=== PATIENT | male | born 1960 | race Asian ===

== ENCOUNTER 2017-08-29 11:11 | Emergency (ER) | payer OTHER ==
[~2017-08-29] VITALS: Ht 177.8 cm; Wt 105.5 kg
[~2017-08-29 11:11] MED LIST: ASPI81TA3 PO; ATOR20TA65 PO; INSU100I13 SC; METF500T PO
[2017-08-29 11:21] VITALS: Ht 177.8 cm; Wt 105.5 kg
[2017-08-29 12:42] LABS: BASOPHILS % 0.6 % (0.0-2.0); EOSINOPHILS # 0.1 10^3/ul (0.0-0.5); EOSINOPHILS % 2.1 % (0.0-7.0); HEMATOCRIT 44.3 % (42.0-52.0); LYMPHOCYTES # 1.4 10^3/ul (0.8-2.9); LYMPHOCYTES % 22.3 % (15.0-51.0); MEAN CORPUSCULAR HEMOGLOBIN 29.9 pg (29.0-33.0); MEAN CORPUSCULAR HGB CONC 33.9 g/dl (32.0-37.0); MEAN CORPUSCULAR VOLUME 88.2 fl (82.0-101.0); MEAN PLATELET VOLUME 9.7 fl (7.4-10.4); MONOCYTE # 0.5 10^3/ul (0.3-0.9); MONOCYTES % 7.7 % (0.0-11.0); NEUTROPHIL # 4.2 10^3/ul (1.6-7.5); PLATELET COUNT 239 10^3/UL (140-415); RED BLOOD COUNT 5.02 10^6/ul (4.70-6.10); RED CELL DISTRIBUTION WIDTH 11.9 % (11.5-14.5); WHITE BLOOD COUNT 6.2 10^3/ul (4.8-10.8)
[2017-08-29 12:48] LABS: BARBITURATES Negative (NEGATIVE); BENZODIAZEPINES Negative (NEGATIVE); CANNABINOIDS Negative (NEGATIVE); COCAINE Negative (NEGATIVE); OPIATES Negative (NEGATIVE)
[2017-08-29 13:01] LABS: ALANINE AMINOTRANSFERASE 34 IU/L (13-69); ALBUMIN/GLOBULIN RATIO 1.33; ALKALINE PHOSPHATASE 73 IU/L (42-121); ANION GAP 18 (8-16); ASPARTATE AMINO TRANSFERASE 26 IU/L (15-46); BILIRUBIN,INDIRECT 0.2 mg/dl (0-1.1); BILIRUBIN,TOTAL 0.2 mg/dl (0.2-1.3); BLOOD UREA NITROGEN 18 mg/dl (7-20); CALCIUM 8.8 mg/dl (8.4-10.2); CARBON DIOXIDE 24 mmol/L (21-31); CHLORIDE 96 mmol/L (97-110); CREATININE 1.04 mg/dl (0.61-1.24); POTASSIUM 4.6 mmol/L (3.5-5.1); SODIUM 133 mmol/L (135-144)
[2017-08-29 13:16] LABS: ETHANOL < 10.0 mg/dl
[2017-08-29 13:17] LABS: GLUCOSE 611 mg/dl (70-220)
[2017-08-29] MEDS ORDERED: SOD CHLORIDE 0.9% 1,000 ML IV STA (13:20)
[2017-08-29] MEDS ORDERED: INSULIN LISPRO 100 UNIT/ML VIAL SC STA (13:20)
[2017-08-29] MEDS ORDERED: LACTATED RINGER'S 1,000 ML IV STA (13:20)
[2017-08-29 13:47] LABS: MODE ROOM AIR; MetHgb Venous 0.2 %; Sample Type Blood venous; Venous COHb 0.3 %; Venous Total Hemglobin 15.6 g/dl
--- NOTE | 2017-08-29 14:04 | ERD ---
ER Documentation Chief Complaint Chief Complaint DEPRESSION W/ THOUGHTS OF HURTING HIMSELF. NO PLAN. HX OF SI HPI This is a 57-year-old male history of diabetes who states that he has not taken his insulin for over 2 years. The patient also has a history of psychiatric illness and has having depression with thoughts of hurting himself. He has no active plan. He denies homicidal ideation. He denies any nausea vomiting or diarrhea, no chest pain or shortness of breath or abdominal pain. ROS All systems reviewed and are negative except as per history of present illness. Medications Home Meds Active Scripts Metformin Hcl (Glucophage) 500 Mg Tablet, 1000 MG PO BID WITH MEALS for 1 Day, TAB Prov:CARLOS ZIMMERMAN MD 03/25/16 Insuln Asp Prt/Insulin Aspart* (Novolog Mix 70-30 Flexpen*) 100 Units/Ml Pen, 24 UNIT SC AC BREAKFAST DINNER for 1 Day Prov:CARLOS ZIMMERMAN MD 03/25/16 Atorvastatin Calcium (Atorvastatin Calcium) 20 Mg Tablet, 20 MG PO HS for 1 Day , TAB Prov:CARLOS ZIMMERMAN MD 03/25/16 Aspirin (Aspirin) 81 Mg Chew, 81 MG PO DAILY for 1 Day, TAB Prov:CARLOS ZIMMERMAN MD 03/25/16 Allergies Allergies: Coded Allergies: No Known Allergy (Unverified , 03/16/16) PMhx/Soc History of Surgery: No Anesthesia Reaction: No Hx Neurological Disorder: No Hx Respiratory Disorders: No Hx Cardiac Disorders: Yes (HIGH BLOOD PRESSURE) Hx Psychiatric Problems: No Hx Miscellaneous Medical Probl: No Hx Alcohol Use: No Hx Substance Use: No Hx Tobacco Use: No Smoking Status: Current some day smoker FmHx Family History: diabetes Physical Exam Vitals Vital Signs Date Time Temp Pulse Resp B/P Pulse Ox O2 Delivery O2 Flow Rate FiO2 08/29/17 11:21 98.3 117 18 140/89 95 Physical Exam General: Disheveled and using cellular phone Head: Normocephalic, atraumatic. Eyes: Pupils equally reactive, EOM intact ENT: Moist mucous membranes Neck: Supple, no lymphadenopathy Respiratory: Lungs clear bilaterally, no distress Cardiovascular: RRR, no murmurs, rubs, or gallops Abdominal: Soft, non-tender, non-distended, no peritoneal signs : Deferred MSK: No edema, no unilateral swelling, 5/5 strength Neurologic: Alert and oriented, moving all extremities, normal speech, no focal weakness, no cerebellar signs Skin: No rash Psych: Depressed mood with suicidal ideation Result Diagram: 08/29/17 1215 08/29/17 1215 Results 24 hrs Laboratory Tests Test 08/29/17 11:58 08/29/17 12:15 08/29/17 13:20 08/29/17 13:49 Urine Opiates Screen Negative Urine Barbiturates Negative Urine Amphetamines Screen Negative Urine Benzodiazepines Screen Negative Urine Cocaine Screen Negative Urine Cannabinoids Negative White Blood Count 6.210^3/ul Red Blood Count 5.0210^6/ul Hemoglobin 15.0g/dl Hematocrit 44.3% Mean Corpuscular Volume 88.2fl Mean Corpuscular Hemoglobin 29.9pg Mean Corpuscular Hemoglobin Concent 33.9g/dl Red Cell Distribution Width 11.9% Platelet Count 60320^3/UL Mean Platelet Volume 9.7fl Neutrophils % 67.0% Lymphocytes % 22.3% Monocytes % 7.7% Eosinophils % 2.1% Basophils % 0.6% Nucleated Red Blood Cells % 0.0/100WBC Neutrophils # 4.210^3/ul Lymphocytes # 1.410^3/ul Monocytes # 0.510^3/ul Eosinophils # 0.110^3/ul Basophils # 0.010^3/ul Nucleated Red Blood Cells # 0.010^3/ul Sodium Level 133mmol/L Potassium Level 4.6mmol/L Chloride Level 96mmol/L Carbon Dioxide Level 24mmol/L Anion Gap 18 Blood Urea Nitrogen 18mg/dl Creatinine 1.04mg/dl Glucose Level 611mg/dl Calcium Level 8.8mg/dl Total Bilirubin 0.2mg/dl Direct Bilirubin 0.00mg/dl Indirect Bilirubin 0.2mg/dl Aspartate Amino Transf (AST/SGOT) 26IU/L Alanine Aminotransferase (ALT/SGPT) 34IU/L Alkaline Phosphatase 73IU/L Total Protein 7.0g/dl Albumin 4.0g/dl Globulin 3.00g/dl Albumin/Globulin Ratio 1.33 Ethyl Alcohol Level < 10.0mg/dl Blood Gas Specimen Source Blood venous Arterial Blood Date Drawn 08/29/2017 1:30:18 PM Arterial Blood Gas Puncture Site OTHER Reece Test N/A Venous Blood pH 7.376 Venous Blood pCO2 (Temp Corrected) 41.9mmHG Venous Blood pO2 (Temp Corrected) 54.0mmHG Venous Blood HCO3 24.0mmol/L Venous Blood Oxygen Saturation 87.4mmHG Venous Blood Base Excess -1.2mmol/L Venous Blood Total Hemoglobin 15.6g/dl Venous Blood Oxyhemoglobin 87.0% Venous Blood Methemoglobin 0.2% Carboxyhemoglobin 0.3% Blood Gas Temperature 37.0C Blood Gas Modality ROOM AIR FiO2 21.0% Blood Gas Notified Whom JLD Blood Gas Notified Time 08/29/2017 1:47:00 PM Bedside Glucose 436mg/dL Current Medications Medications (Trade) Dose Ordered Sig/Lior Route PRN Reason Start Time Stop Time Status Last Admin Dose Admin Sodium Chloride 1,000 ml @ 1,000 mls/hr Q1H STAT IV 08/29/17 13:20 08/29/17 14:19 08/29/17 13:51 Lactated Ringer's (Lr) 1,000 ml @ 1,000 mls/hr Q1H STAT IV 08/29/17 13:20 08/29/17 14:19 08/29/17 13:52 Insulin Human Lispro (Humalog) 8 unit ONCE STAT SC 08/29/17 13:20 08/29/17 13:25 DC 08/29/17 13:50 Procedures/MDM LAB INTERPRETATION: Hyperglycemia without evidence of diabetic ketoacidosis, normal pH normal anion gap, normal bicarbonate MEDICAL DECISION MAKING: The patient's presentation is consistent with underlying psychiatric illness and likely exacerbation of this illness and/or psychosis. Additionally, the patient has evidence of hyperglycemia likely secondary to medication noncompliance. The patient does not have any signs or symptoms concerning for diabetic ketoacidosis. Given that he has been without insulin for over 2 years this is unlikely to be insulin-dependent diabetes. Initiation of metformin on an outpatient for psychiatric inpatient placement basis would be reasonable. I have a much lower clinical concern for delirium or acute organic pathology such as toxicologic, metabolic, ischemic, intracranial hemorrhage, infectious process. However, we must rule this out prior to relying a diagnosis of underlying psychiatric illness. The patient's workup will include medical screening examination, laboratory analysis, and diagnostic imaging such as EKG, chest x-ray or CT brain as indicated. If the patient's medical examination and laboratory analysis do not reveal acute organic pathology the patient will be medically cleared for psychiatric evaluation. ER COURSE: Given that the patient has hyperglycemia he was given 1 L of saline, 1 L of lactated Ringer's and given 8 units of subcutaneous Humalog. I do not believe the patient requires hospitalization for his hyperglycemia, this can absolutely be managed as an outpatient basis. Initiation of metformin given that the patient has been out of insulin for at least 2 years would be reasonable. The patient may require a prescription for placement depending on psychiatric facility needs. She continues to be well-appearing and using a cellular phone in the emergency room. The patient is medically cleared for psychiatric evaluation. I kept the patient and/or family informed of laboratory and diagnostic imaging results throughout the emergency room course. CONSULTATION: Psychiatric consultation: Telemetry medicine psychiatry has been consulted on this case to evaluate the patient for possible acute psychiatric illness that would require inpatient hospitalization. DISPOSITION PLAN: Pending psychiatric placement and control of hyperglycemia Patient endorsed oncoming provider. Departure Diagnosis: Primary Impression: Suicidal ideation Additional Impressions: Hyperglycemia Noncompliance with medication regimen Condition: Stable ALEXANDREA LYNCH MD Aug 29, 2017 14:03
[2017-08-29 14:08] LABS: ADD UMIC NO; UR ASCORBIC ACID NEGATIVE (NEGATIVE); UR BILIRUBIN (Dip) NEGATIVE (NEGATIVE); UR BLOOD (Dip) NEGATIVE (NEGATIVE); UR CLARITY CLEAR (CLEAR); UR COLOR STRAW (YELLOW); UR GLUCOSE (Dip) 3+ mg/dL (NEGATIVE); UR KETONES (Dip) NEGATIVE (NEGATIVE); UR LEUKOCYTE ESTERASE (Dip) NEGATIVE Leu/ul (NEGATIVE); UR NITRITE (Dip) NEGATIVE (NEGATIVE); UR SPECIFIC GRAVITY (Dip) 1.029 (1.003-1.030); UR TOTAL PROTEIN (Dip) NEGATIVE (NEGATIVE); UR UROBILINOGEN (Dip) NEGATIVE (NEGATIVE)
[2017-08-29] MEDS ORDERED: metFORMIN 500 MG TAB PO ONE (15:00)
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
[2017-08-30] MEDS ORDERED: SOD CHLORIDE 0.9% 1,000 ML IV STA ×2 (01:23→08:19)
[2017-08-30] MEDS ORDERED: INSULIN LISPRO 100 UNIT/ML VIAL SC ONE (04:27)
[2017-08-30] MEDS ORDERED: INSULIN REGULAR, HUMAN 100 UNIT/1 ML 3ML VIAL SC ONE (08:00)
[2017-08-30 11:25] VITALS: BP 136/78; PULSE 94; RESP 17; TEMP 98.6
== END 2017-08-30 12:37 | disposition home or self-care (01) ==
LOC: E/R 11:11
DX: R45.851 Suicidal ideations (principal); E11.65 Type 2 diabetes mellitus with hyperglycemia; F17.210 Nicotine dependence, cigarettes, uncomplicated; Z79.4 Long term (current) use of insulin; Z79.82 Long term (current) use of aspirin; Z79.84 Long term (current) use of oral hypoglycemic drugs; Z91.14 Patient's other noncompliance with medication regimen
CPT/HCPCS: 36415; 80053; 80306; 80307; 81003; 82803; 82962; 85025; 96372; J1815; J7030; J7120; Z7502